=== PATIENT | female | born 1940 | race Caucasian/White ===

== ENCOUNTER 2020-12-14 08:07 | Outpatient (CLI) | payer MEDICARE, OTHER | END 2020-12-14 08:08 | disposition home or self-care (01) | LOC: PET 08:07 | PROVIDERS: ATTEND Internal Medicine Pulmonary Disease | DX: R91.1 Solitary pulmonary nodule (principal); N89.8 Other specified noninflammatory disorders of vagina | CPT/HCPCS: 78815; A9552 ==

== ENCOUNTER 2024-06-25 10:15 | Outpatient (CLI) | payer MEDICARE | END 2024-06-25 10:16 | disposition home or self-care (01) | LOC: PET 10:15 | PROVIDERS: ATTEND Surgery | DX: C83.15 Mantle cell lymphoma, lymph nodes of inguinal region and lower limb (principal) | CPT/HCPCS: 78816; A9552 ==

== ENCOUNTER 2024-08-23 09:30 | Outpatient (CLI) | payer MEDICARE | END 2024-08-23 09:31 | disposition home or self-care (01) | LOC: PET 09:30 | PROVIDERS: ATTEND Internal Medicine | DX: C83.15 Mantle cell lymphoma, lymph nodes of inguinal region and lower limb (principal); R91.1 Solitary pulmonary nodule; R59.0 Localized enlarged lymph nodes | CPT/HCPCS: 78815; A9552 ==

== ENCOUNTER 2025-08-07 14:16 | Outpatient (CLI) | payer MEDICARE | END 2025-08-07 14:17 | disposition home or self-care (01) | LOC: RAD 14:16 | PROVIDERS: ATTEND Internal Medicine Critical Care Medicine | DX: R06.00 Dyspnea, unspecified (principal); R91.1 Solitary pulmonary nodule | CPT/HCPCS: 71046 ==